=== PATIENT | male | born 1985 | race Caucasian/White ===

== ENCOUNTER 2016-12-29 09:04 | Emergency (ER) | payer SELFPAY ==
--- NOTE | ~2016-12-29 | ER ---
PATIENT'S NAME: ARTURO SANDHU [facility] AGE: 31 Y [address] ROOM: [place] [address] LOCATION: [facility] ADMIT DATE: 12/29/2016 ER/Outpatient Report DISCHARGE DATE: 12/29/2016 FAMILY PHYSICIAN: PHYSICIAN, NO ATTENDING PHYSICIAN: Dudley Leach CHIEF COMPLAINT: Right foot pain. HISTORY OF PRESENT ILLNESS: The patient was recently discharged from [facility] for undisclosed reasons. He states that he has pain in his right foot since then. He has been trying [id number] remedies to try to make it better, but has not been successful. It is worse the more he walks, he is concerned about fracture. He denies any recent trauma. PAST MEDICAL HISTORY: Documented on the record and have been reviewed by me. SOCIAL HISTORY: Documented on the record and have been reviewed by me. MEDICATIONS: Documented on the record and have been reviewed by me. ALLERGIES: DOCUMENTED ON THE RECORD AND HAVE BEEN REVIEWED BY ME. REVIEW OF SYSTEMS: All systems were reviewed and negative except as noted in HPI. PHYSICAL EXAMINATION: VITAL SIGNS: Blood pressure is 143/74, pulse is 48, respiratory rate is 18, temperature is 98 degrees, and SpO2 is 96% on room air. Pain is rated 8/10. GENERAL: Age-appropriate male, in no obvious pain or distress, sitting upright on the exam chair. NEUROLOGIC: Awake and alert. GCS is 15. No focal deficits or asymmetry. HEENT: Head: Normocephalic, atraumatic. Eyes are PERRL. Oropharynx appears normal. Trachea is midline. CHEST: Even and unlabored respirations. No obvious abnormalities to inspection. EXTREMITIES: Warm and well perfused with brisk capillary refill. The right lower extremity is notable for tenderness over the dorsum of the foot on the lateral raise. No focal tenderness. No erythema or edema. SKIN: Otherwise warm, dry, and intact. PATIENT'S NAME: ARTURO SANDHU [facility] AGE: 31 Y [address] ROOM: [place] [address] LOCATION: [facility] ADMIT DATE: 12/29/2016 ER/Outpatient Report DISCHARGE DATE: 12/29/2016 FAMILY PHYSICIAN: PHYSICIAN, NO ATTENDING PHYSICIAN: Dudley Leach IMPRESSION: Foot pain. LABORATORY DATA AND X-RAYS: Plain films of the foot and ankle were obtained with no abnormalities. ED COURSE: The patient is seen and evaluated as above. No fractures. Postop shoe for comfort. Encourage [id number] anti-inflammatories and ice as needed. Re-evaluation in 1 week if not improving. MD LAURI BATEMAN/emma /[id number] d: 12/29/16 1809 t: 01/12/17 0804, OUTPATIENT REPORT
[~2016-12-29 09:04] MED LIST: ATARAX25 MG PO; GABAPENTIN800 MG PO; INDERAL10 MG PO; MOTRIN600 MG PO; NICODERM / HABIT7 MG TRANS; REMERON15 MG PO
== END 2016-12-29 09:44 | disposition disaster alternative care site (69) ==
LOC: GACC 09:04
DX: M79.671 Pain in right foot (principal); Z88.2 Allergy status to sulfonamides; Z79.899 Other long term (current) drug therapy